=== PATIENT | female | born 1990 | race Caucasian/White ===

== ENCOUNTER 2024-10-08 21:15 | Emergency (ER) | payer MEDICAID, SELFPAY ==
[2024-10-08] VITALS (17 sets, daily range): BP systolic 95–118; BP diastolic 59–83; PULSE 69–88; RESP 17–32; TEMP 36.7; O2SAT 97–100
[2024-10-08] MEDS: levETIRAcetam 1000MG/NACL100ML 1,000 MG/100 ML BAG 400 MG IVPB (23:55)
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
[2024-10-09] VITALS: PULSE 77; RESP 21; O2SAT 97
[2024-10-09 00:01] VITALS: BP 111/53; PULSE 66; RESP 15; O2SAT 100
[2024-10-09 00:05] LABS: Basophils Absolute Auto 0.1 K/mm3 (0.0-0.1); Basophils Percent Auto 0.6 % (0.2-1.2); Eosinophils Absolute Auto 0.3 K/mm3 (0-0.3); Eosinophils Percent Auto 3.1 % (0-4.4); Hemoglobin 13.4 g/dL (12.0-15.0); Immature Granulocyte Absolute 0.01 K/mm3 (0.00-0.031); Immature Granulocyte Percent A 0.1 % (0-0.5); Lymphocytes Absolute Auto 3.26 K/mm3 (0.9-3.2); Lymphocytes Percent Auto 39.2 % (18.3-44.2); Mean Corpuscular HGB Conc 32.7 g/dl (32-36); Mean Corpuscular Hemoglobin 32.5 pg (26-34); Mean Corpuscular Volume 99.5 fl (80-100); Mean Platelet Volume 11.1 fl (7.4-10.4); Monocytes Absolute Auto 0.6 K/mm3 (0.1-0.6); Monocytes Percent Auto 6.6 % (2.6-8.5); Neutrophils Absolute Auto 4.2 K/mm3 (1.3-6.7); Neutrophils Percent Auto 50.4 % (45.5-73.1); Platelet Count Result 223 k/mm3 (150-375); Red Blood Count 4.12 M/mm3 (4.2-5.4); Red Cell Distribution Width 13.3 % (11.5-14.5); White Blood Count 8.3 K/mm3 (4.5-10.0)
[2024-10-09 00:12] LABS: Anion Gap 9 mmol/L (4-12); Blood Urea Nitrogen 8 mg/dL (7-17); Calcium 8.9 mg/dL (8.4-10.2); Carbon Dioxide 17 mmol/L (22-30); Chloride 117 mmol/L (98-107); Estimated CRCL calculation 88 ml/min; Estimated Glomerular Filt Rate > 60; Glucose 97 mg/dL (65-110); Potassium 3.9 mmol/L (3.4-5.0); Sodium 143 mmol/L (137-145)
[2024-10-09 00:13] LABS: Lactic Acid Reflex 1.2 mmol/L (0.7-2.0)
[2024-10-09 00:41] VITALS: PULSE 75; RESP 19; O2SAT 97
[2024-10-09 01:18] VITALS: PULSE 69; RESP 18; O2SAT 97
--- NOTE | 2024-10-09 01:47 | PC.NURSE ---
Patient requesting medications for my seizures. This RN and PA were in room speaking with patient and updated on results and her need to follow up with a neurologist. Patient then became verbally aggressive stating I need fucking medication for my seizures. You guys are fucking stupid and retarded and fucking indiots and I am having seizures and I need medicine for them. PA informed patient that that she is not having seizures that require benzo medication and that she is being discharged. Patient continued to yell at this RN and PA and stating I need medication, I am not leaving!! This RN informed patient that verbal aggression will not be tolerated and she is being discharged. Patient continued to yell and refused to sign discharge papers. Patients visitor also refused to sign discharge papers. ED security called to escort patient out of ED. IV was removed with tip intact.
[2024-10-09 01:52] VITALS: BP 98/61; PULSE 63; RESP 18; O2SAT 99
== END 2024-10-09 01:56 | disposition home or self-care (01) ==
PROVIDERS: Emergency Provider Physician Assistant
DX: R56.9 Unspecified convulsions (principal); Z87.820 Personal history of traumatic brain injury
CPT/HCPCS: 36415; 80048; 83605; 85025; 96374; 99284; J1953